=== PATIENT | female | born 1975 | race Caucasian/White ===

== ENCOUNTER 2020-03-15 14:10 | Emergency (ER) | payer BC ==
[2020-03-15] MEDS ORDERED: HYDROmorphone 1 MG/ML Syringe IVPUSH ONE ×2 (14:38→15:23)
[2020-03-15] MEDS ORDERED: Ondansetron 4 MG/2 ML SDV IVPUSH ONE ×3 (14:38→15:46)
[2020-03-15] MEDS ORDERED: Sodium Chloride 0.9% 1,000 ML IV ONE (14:39)
--- NOTE | 2020-03-15 14:49 | EDM.PDOC ---
ED HPI GENERAL MEDICAL PROBLEM - General Chief Complaint: Gastrointestinal Problem Stated Complaint: ABDOMIN/HERNIA Time Seen by Provider: 03/15/20 14:11 Source of Information: Reports: Patient History Limitations: Reports: No Limitations - History of Present Illness INITIAL COMMENTS - FREE TEXT/NARRATIVE: Presents reporting an umbilical hernia. Patient states that she has had a very longstanding umbilical hernia. It occasionally "pops out" but she is always able to reduce it herself with gentle pressure. This morning it popped out and she has not been able to get it back in. Now, she is having excruciating pain and mild nausea. No unusual activity. Denies vomiting, fever, constipation. 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 ED EXAM, GI/ABD - Physical Exam Exam: See Below Exam Limited By: No Limitations General Appearance: Alert, Mild Distress (To pain) Ears: Normal External Exam, Normal TMs Nose: Normal Inspection Throat/Mouth: Normal Inspection Head: Atraumatic, Normocephalic Neck: Normal Inspection Respiratory/Chest: No Respiratory Distress, Lungs Clear Cardiovascular: Normal Peripheral Pulses, Regular Rate, Rhythm, No Murmur GI/Abdominal Exam: Normal Bowel Sounds, Soft, No Distention, Other (6 to 7 cm umbilical hernia with exquisite tenderness) Back Exam: Normal Inspection Extremities: Normal Inspection Neurological: Alert, Oriented Psychiatric: Normal Affect, Normal Mood Skin Exam: Warm, Dry, Intact, Normal Color, No Rash Lymphatic: No Adenopathy Course - Vital Signs Last Recorded V/S: Last Vital Signs Temp 37.1 C 03/15/20 14:17 Pulse 81 03/15/20 14:17 Resp 18 03/15/20 14:17 BP 149/88 H 03/15/20 14:17 Pulse Ox 99 03/15/20 14:17 - Orders/Labs/Meds Orders: Active Orders 24 hr Category Date Time Status Abdomen Pelvis wo Cont [CT] Stat Exams 03/15/20 15:33 Ordered Labs: Laboratory Tests 03/15/20 03/15/20 03/15/20 Range/Units 14:52 14:52 16:06 WBC 12.42 H (4.0-11.0) K/uL RBC 4.67 (4.30-5.90) M/uL Hgb 14.0 (12.0-16.0) g/dL Hct 40.9 (36.0-46.0) % MCV 87.6 (80.0-98.0) fL MCH 30.0 (27.0-32.0) pg MCHC 34.2 (31.0-37.0) g/dL RDW Std Deviation 40.4 (28.0-62.0) fl RDW Coeff of Megan 13 (11.0-15.0) % Plt Count 301 (150-400) K/uL MPV 9.60 (7.40-12.00) fL Neut % (Auto) 83.8 H (48.0-80.0) % Lymph % (Auto) 11.7 L (16.0-40.0) % [place] % (Auto) 3.4 (0.0-15.0) % Eos % (Auto) 0.9 (0.0-7.0) % Baso % (Auto) 0.2 (0.0-1.5) % Neut # (Auto) 10.4 H (1.4-5.7) K/uL Lymph # (Auto) 1.5 (0.6-2.4) K/uL [place] # (Auto) 0.4 (0.0-0.8) K/uL Eos # (Auto) 0.1 (0.0-0.7) K/uL Baso # (Auto) 0.0 (0.0-0.1) K/uL Nucleated RBC % 0.0 /100WBC Nucleated RBCs # 0 K/uL Sodium 137 (136-145) mmol/L Potassium 3.9 (3.5-5.1) mmol/L Chloride 100 (98-107) mmol/L Carbon Dioxide 28.1 (21.0-32.0) mmol/L BUN 15 (7.0-18.0) mg/dL Creatinine 1.0 (0.6-1.0) mg/dL Est Cr Clr Drug Dosing 67.91 mL/min Estimated GFR (MDRD) > 60.0 ml/min Glucose 119 H (74-106) mg/dL Calcium 9.7 (8.5-10.1) mg/dL Total Bilirubin 0.6 (0.2-1.0) mg/dL AST 23 (15-37) IU/L ALT 38 (14-63) IU/L Alkaline Phosphatase 49 (46-116) U/L Total Protein 8.2 (6.4-8.2) g/dL Albumin 4.1 (3.4-5.0) g/dL Globulin 4.1 H (2.6-4.0) g/dL Albumin/Globulin Ratio 1.0 (0.9-1.6) Urine HCG, Qual NEGATIVE (NEGATIVE) Meds: Medications Discontinued Medications Generic Name Dose Route Start Last Admin Trade Name Freq PRN Reason Stop Dose Admin Hydromorphone HCl 1 mg 03/15/20 14:38 03/15/20 14:45 Dilaudid IVPUSH 03/15/20 14:39 1 mg ONETIME ONE Administration Hydromorphone HCl 1 mg 03/15/20 15:23 03/15/20 15:28 Dilaudid IVPUSH 03/15/20 15:24 1 mg ONETIME ONE Administration Sodium Chloride 1,000 mls @ 999 mls/hr 03/15/20 14:39 03/15/20 14:46 Normal Saline IV 03/15/20 15:39 999 mls/hr STAT ONE Administration Metoclopramide HCl 10 mg 03/15/20 16:04 03/15/20 16:07 Reglan IV 03/15/20 16:05 10 mg ONETIME ONE Administration Ondansetron HCl 4 mg 03/15/20 14:38 03/15/20 14:45 Zofran IVPUSH 03/15/20 14:39 4 mg ONETIME ONE Administration Ondansetron HCl 4 mg 03/15/20 15:45 03/15/20 15:49 Zofran IVPUSH 03/15/20 15:46 4 mg ONETIME ONE Administration Ondansetron HCl 4 mg 03/15/20 15:46 03/15/20 15:49 Zofran IVPUSH 03/15/20 15:47 Not Given ONETIME ONE - Re-Assessments/Exams Free Text/Narrative Re-Assessment/Exam: 03/15/[address] Gaston Contreras, Emergency Medicine and Florin Parker, General Surgery here. Both attempted to reduce the hernia. Free Text/Narrative Re-Assessment/Exam: 03/15/20 16:30 Dr. Florin Parker here, same reduced the hernia. Will get CT and if no bowel involvement send home with clinic follow up. Free Text/Narrative Re-Assessment/Exam: 03/15/20 18:02 Dr Florin Parker here to review CT scan. Home with clinic follow up. Departure - Departure Time of Disposition: 18:02 Disposition: Home, Self-Care 01 Condition: Good Clinical Impression: Umbilical hernia Qualifiers: Obstruction and gangrene presence: without obstruction or gangrene Qualified Code(s): K42.9 - Umbilical hernia without obstruction or gangrene - Discharge Information *PRESCRIPTION DRUG MONITORING PROGRAM REVIEWED*: Not Applicable *COPY OF PRESCRIPTION DRUG MONITORING REPORT IN PATIENT ÁNGEL: Not Applicable Referrals: PCP,None [Primary Care Provider] - Florin Parker MD [Physician] - Forms: ED Department Discharge Additional Instructions: The following information is given to patients seen in the emergency department who are being discharged to home. This information is to outline your options for follow-up care. We provide all patients seen in our emergency department with a follow-up referral. The need for follow-up, as well as the timing and circumstances, are variable depending upon the specifics of your emergency department visit. If you don't have a primary care physician on staff, we will provide you with a referral. We always advise you to contact your personal physician following an emergency department visit to inform them of the circumstance of the visit and for follow-up with them and/or the need for any referrals to a consulting specialist. The emergency department will also refer you to a specialist when appropriate. This referral assures that you have the opportunity for follow-up care with a specialist. All of these measure are taken in an effort to provide you with optimal care, which includes your follow-up. Under all circumstances we always encourage you to contact your private physician who remains a resource for coordinating your care. When calling for follow-up care, please make the office aware that this follow-up is from your recent emergency room visit. If for any reason you are refused follow-up, please contact the [facility] at and asked to speak to the emergency department charge nurse. 1. Return promptly to the emergency room for vomiting and not keeping down oral fluids, unable to reduce umbilical hernia, increased pain and hernia area. 2. Follow up in the clinic with Dr. Florin Parker for definitive management. Sepsis Event Note (ED) - Evaluation Sepsis Screening Result: No Definite Risk - Focused Exam Vital Signs: Vital Signs Temp Pulse Resp BP Pulse Ox 03/15/20 14:17 37.1 C 81 18 149/88 H 99 - My Orders Last 24 Hours: My Active Orders 03/15/20 15:33 Abdomen Pelvis wo Cont [CT] Stat - Assessment/Plan Last 24 Hours: My Active Orders 03/15/20 15:33 Abdomen Pelvis wo Cont [CT] Stat
[2020-03-15 15:40] LABS: BLOOD UREA NITROGEN,BUN 15 mg/dL (7.0-18.0); CARBON DIOXIDE,CO2 28.1 mmol/L (21.0-32.0); CHLORIDE,CL 100 mmol/L (98-107); GLUCOSE RANDOM 119 mg/dL (74-106); POTASSIUM,K 3.9 mmol/L (3.5-5.1); SODIUM,NA 137 mmol/L (136-145)
[2020-03-15] MEDS ORDERED: Metoclopramide 10 MG/2 ML SDV IV ONE (16:04)
--- NOTE | 2020-03-15 17:57 | CT ---
Indication: Umbilical hernia Technique: Volumetric multidetector CT images of the abdomen and pelvis were without the administration of intravenous contrast. Comparison: None available. Findings: There is dependent basilar atelectasis versus scar. The liver is mildly prominent with otherwise preserved attenuation. The gallbladder is unremarkable without evidence of radiopaque calculus. There is no significant common biliary ductal dilatation or abrupt cut off. The spleen is normal in attenuation and size. The stomach and duodenum are grossly unremarkable. The pancreas is normal in attenuation without significant atrophy. There is demonstration of a low-density mass with minimal peripheral calcification seen in the left adrenal gland measuring 18.3 Hounsfield units. There is no evidence of radiopaque calculus or hydronephrosis. There is moderate stool seen throughout the colon with colonic diverticulosis without evidence of diverticulitis. The appendix is unremarkable. There is no significant mesenteric, retroperitoneal, or pelvic sidewall lymph nodes. The aorta is nonaneurysmal. There is no significant atherosclerotic disease appreciated. The solid pelvic viscera are grossly unremarkable. There is an IUD seen in satisfactory position within the endometrial canal. There is no free fluid or free air. There is demonstration of a large fat containing umbilical hernia with a moderate amount of superficial fat stranding. There is no evidence of frankly herniated loop of small bowel with minimal mesenteric edema seen within adjacent loops of small bowel. The lumbar vertebral body heights are grossly maintained in satisfactory alignment without evidence of displaced fracture, lytic or blastic lesion. Impression: Demonstration large fat containing umbilical hernia with a wide mouth defect with minimal internal fat stranding likely representing incarceration. There is minimal associated thickening of adjacent bowel loops with mild mesenteric edema which remains intraperitoneal. No evidence of igor, herniated or obstructed small bowel is appreciated. Please note that all CT scans at this facility use dose modulation, iterative reconstruction, and/or weight-based dosing when appropriate to reduce radiation dose to as low as reasonably achievable. Dictated by Jaspal Washington MD @ Mar 15 2020 5:47PM Signed by Dr. Jaspal Washington @ Mar 15 2020 5:55PM
--- NOTE | 2020-03-15 20:22 | CONS ---
DATE OF CONSULTATION: 03/15/2020 DATE OF : 1975 PRIMARY CARE PHYSICIAN: None PCP REASON FOR CONSULT: Umbilical hernia. HISTORY OF PRESENT ILLNESS: The patient is a pleasant 44-year-old female. She states for the past 12 years she has had an umbilical hernia. It appears she has had ever since the of her child. She says she is always able to reduce it. However, she today started having some pain when she was at work. She went home and laid down to try to reduce it but was not able to and also was becoming very hard and painful, so she came to the hospital for evaluation. The patient says she is also having some nausea. PAST MEDICAL HISTORY: Hypertension. CURRENT HOME MEDICATIONS: 1. Labetalol daily. 2. Hydrochlorothiazide daily. PAST SURGICAL HISTORY: The patient denies any. ALLERGIES: No known drug allergies. SOCIAL HISTORY: Patient denies any tobacco use. Denies any illicit drug use. She does have occasional alcohol on weekends. 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 FAMILY HISTORY: Father had MIs. REVIEW OF SYSTEMS: A complete 12-point review of system was done, was negative except for what is in HPI. PHYSICAL EXAMINATION: GENERAL: The patient is lying in hospital bed. She is alert and oriented, in no acute distress. VITAL SIGNS: Temperature is 98.7, pulse is 73, blood pressure is 141/77, and saturating 95% on room air. HEENT: Normocephalic, atraumatic. Mouth, she is wearing her mask. LUNGS: Clear to auscultation bilaterally. No rhonchi or wheezing. HEART: Regular rhythm. No murmur appreciated. ABDOMEN: Soft and nondistended. Right umbilicus does have a hard mass. It is tender and probably about 6 cm. With some traction, I am able to reduce the umbilical hernia. EXTREMITIES: No edema. NEUROLOGIC: No gross motor neurologic deficit noted. LABORATORY DATA: White cell count is 12.42. Sodium is 137, potassium 3.9, chloride is 100, bicarb 28.1, BUN 15, creatinine 1, glucose is 119. CT scan was done and did look at the images myself and report did show a large sac containing umbilical hernia with some superficial fat stranding, no small bowel involvement. There is some minimal mesenteric edema of adjacent bowel loops though. ASSESSMENT/PLAN: A pleasant 44-year-old female with a longstanding umbilical hernia. It did become incarcerated. However, we were able to reduce it. Currently, the patient is not having any abdominal pain and feels good. I did go over with the patient that she should start consider having it repaired. She would like to do this since it has been reduced and is no longer painful and will do it as an outpatient. The patient should follow up with me in the clinic. I told the patient it is important that if she does have pain or if she has nausea, vomiting or does not feel well, she needs to return to the ER. There is always a small chance that before the hernia reduced, there is a bowel entrapment that could become ischemic, although no real signs of it currently. The patient understands. She will follow up with me as an outpatient in the clinic. I did discuss this with the ER physician. SANJEEV ROSALES /[id number]
== END 2020-03-15 18:49 | disposition home or self-care (01) ==
LOC: MW.ED 14:10
DX: K42.9 Umbilical hernia without obstruction or gangrene (principal); I10 Essential (primary) hypertension; Z79.899 Other long term (current) drug therapy
CPT/HCPCS: 36415; 74176; 80053; 81025; 85025; 96374; 96375; 96376; 99283; J1170; J2405; J2765; J7030; 99284

== ENCOUNTER 2020-04-21 10:00 | Day surgery (SDC) | payer BC ==
[~2020-04-21 10:00] MED LIST: Acetaminophen 1,000 MG in Premix Bag 1 BAG IV ONE; Lactated Ringers 1,000 ML IV SCH; Pregabalin 200 MG Cap PO SCH; ceFAZolin 2 GM in Premix Bag 1 BAG IV ONE
[2020-04-21] MEDS ORDERED: Octyl 2-Cyanoacrylate 1 Tube ONE (10:48)
[2020-04-21] MEDS ORDERED: Bupivacaine 0.5% 30 ML SDV ONE (10:48)
--- NOTE | 2020-04-21 10:52 | PCM.PREANE ---
Preanesthetic Assessment - Anesthesia/Transfusion/Family Hx Anesthesia History: No Prior Anesthesia Family History of Anesthesia Reaction: No Transfusion History: No Prior Transfusion(s) Intubation History: Unknown - Review of Systems General: No Symptoms Pulmonary: No Symptoms Cardiovascular: No Symptoms Gastrointestinal: No Symptoms Neurological: No Symptoms Other: Reports: None - Physical Assessment Vital Signs: Last Vital Signs Temp 36.9 C 04/21/20 10:17 Pulse 78 04/21/20 10:17 Resp 15 04/21/20 10:17 BP 125/77 04/21/20 10:17 Pulse Ox 96 04/21/20 10:17 Height: 5 ft 6 in Weight: 107.048 kg ASA Class: 2 Mental Status: Alert & Oriented x3 Airway Class: Mallampati = 2 Dentition: Reports: Normal Dentition Thyro-Mental Finger Breadths: 3 Mouth Opening Finger Breadths: 3 ROM/Head Extension: Full Lungs: Clear to Auscultation, Normal Respiratory Effort Cardiovascular: Regular Rate, Regular Rhythm - Lab Values: Laboratory Last Values Urine HCG, Qual NEGATIVE (NEGATIVE) 04/21/20 10:05 - Allergies Allergies/Adverse Reactions: Allergies Allergy/AdvReac Type Severity Reaction Status Date / Time No Known Allergies Allergy Verified 04/15/20 08:07 - Blood Blood Available: No - Anesthesia Plan Pre-Op Medication Ordered: None - Acknowledgements Anesthesia Type Planned: MAC (general anesthesia back-up plan) Pt an Appropriate Candidate for the Planned Anesthesia: Yes Alternatives and Risks of Anesthesia Discussed w Pt/Guardian: Yes Pt/Guardian Understands and Agrees with Anesthesia Plan: Yes PreAnesthesia Questionnaire HEENT History: Reports: Other (See Below) Other HEENT History: wears glasses Cardiovascular History: Reports: Hypertension Respiratory History: Reports: None Gastrointestinal History: Reports: Other (See Below) (ventral (umbilical) hernia, moderate in size) Genitourinary History: Reports: None 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: Musculoskeletal History: Reports: None Neurological History: Reports: None Psychiatric History: Reports: None Endocrine/Metabolic History: Reports: Obesity/BMI 30+ (BMI 38.1) Hematologic History: Reports: None Immunologic History: Reports: None Oncologic (Cancer) History: Reports: None Dermatologic History: Reports: None - Infectious Disease History Infectious Disease History: Reports: Chicken Pox - Past Surgical History Head Surgeries/Procedures: Reports: None HEENT Surgical History: Reports: None Cardiovascular Surgical History: Reports: None Respiratory Surgical History: Reports: None GI Surgical History: Reports: None Female Surgical History: Reports: None Endocrine Surgical History: Reports: None Neurological Surgical History: Reports: None Musculoskeletal Surgical History: Reports: None Oncologic Surgical History: Reports: None Dermatological Surgical History: Reports: None - SUBSTANCE USE Tobacco Use Status *Q: Never Tobacco User - HOME MEDS Home Medications: Home Meds Labetalol [Normodyne] 200 mg PO BID 03/15/20 [History] hydroCHLOROthiazide [Hydrochlorothiazide] 25 mg PO DAILY 03/15/20 [History] - CURRENT (IN HOUSE) MEDS Current Meds: Current Medications Lactated Ringer's (Ringers, Lactated) 1,000 mls @ 125 mls/hr IV ASDIRECTED [facility] Last Admin: 04/21/20 10:20 Dose: 125 mls/hr Documented by: Pregabalin (Lyrica) 200 mg PO DAILY [facility] Last Admin: 04/21/20 10:23 Dose: 200 mg Documented by: Discontinued Medications Acetaminophen 1,000 mg/ Premix 100 mls @ 400 mls/hr IV NOW ONE Stop: 04/21/20 07:44 Last Admin: 04/21/20 10:46 Dose: 400 mls/hr Documented by: Cefazolin Sodium/Dextrose 2 gm (/ Premix) 50 mls @ 100 mls/hr IV ONETIME ONE Stop: 04/19/20 11:48 Acetaminophen (Ofirmev) Confirm Administered Dose 100 mls @ as directed .ROUTE .STK-MED ONE Stop: 04/21/20 10:30 Last Admin: 04/21/20 10:41 Dose: Not Given Documented by:
[2020-04-21] MEDS ORDERED: Ondansetron 4 MG/2 ML SDV ONE (12:35)
[2020-04-21] MEDS ORDERED: fentaNYL 100 MCG/2 ML SDV ONE (12:35)
[2020-04-21] MEDS ORDERED: Glycopyrrolate 0.2 MG/ML SDV ONE (12:35)
[2020-04-21] MEDS ORDERED: Propofol 200 MG/20 ML SDV ONE ×3 (12:35→12:52)
[2020-04-21] MEDS ORDERED: Dexamethasone 4 MG/ML 5 ML MDV ONE (12:35)
[2020-04-21] MEDS ORDERED: Midazolam 1 MG/ML 2 ML SDV ONE (12:35)
[2020-04-21] MEDS ORDERED: Ketorolac 30 MG/ML SDV ONE (12:35)
[2020-04-21] MEDS ORDERED: Rocuronium Bromide 50 MG/5 ML Syringe ONE (12:35)
[2020-04-21] MEDS ORDERED: ceFAZolin 1 GM Vial ONE (12:36)
[2020-04-21] MEDS ORDERED: Morphine 10 MG/ML Syringe ONE (12:36)
[2020-04-21] MEDS ORDERED: Morphine 10 MG/ML Syringe IVPUSH ONE (13:27)
--- NOTE | 2020-04-21 13:49 | PCM.OPNOTE ---
- General Post-Op/Procedure Note Date of Surgery/Procedure: 04/21/20 Operative Procedure(s): Open repair of a ventral/umbilical hernia with mesh. Findings: Large hernia sac with smaller facial defect. dictation number [id number] Pre Op Diagnosis: Umbilical/ventral hernia Post-Op Diagnosis: Umbilical/ventral hernia Anesthesia Technique: General ET Tube Pathology: Hernia sac and contents. EBL in mLs: 25 Complications: None Condition: Good
--- NOTE | 2020-04-21 14:15 | PCM48HPAN ---
Post Anesthesia Note - EVALUATION WITHIN 48HRS OF ANESTHETIC Vital Signs in Normal Range: Yes Patient Participated in Evaluation: Yes Respiratory Function Stable: Yes Airway Patent: Yes Cardiovascular Function Stable: Yes Hydration Status Stable: Yes Pain Control Satisfactory: Yes Nausea and Vomiting Control Satisfactory: Yes Mental Status Recovered: Yes Vital Signs: Last Vital Signs Temp 36.6 C 04/21/20 13:43 Pulse 82 04/21/20 14:09 Resp 17 04/21/20 14:09 BP 135/78 04/21/20 14:09 Pulse Ox 95 04/21/20 14:09 - COMMENTS/OBSERVATIONS Free Text/Narrative:: Doing well. Taking fluids. A&O x3. Moving to Phase 2.
--- NOTE | 2020-04-21 14:52 | PCM48HPAN ---
Post Anesthesia Note - EVALUATION WITHIN 48HRS OF ANESTHETIC Vital Signs in Normal Range: Yes Patient Participated in Evaluation: Yes Respiratory Function Stable: Yes Airway Patent: Yes Cardiovascular Function Stable: Yes Hydration Status Stable: Yes Pain Control Satisfactory: Yes Nausea and Vomiting Control Satisfactory: Yes Mental Status Recovered: Yes Vital Signs: Last Vital Signs Temp 36.6 C 04/21/20 13:43 Pulse 74 04/21/20 14:13 Resp 12 04/21/20 14:13 BP 137/83 04/21/20 14:13 Pulse Ox 96 04/21/20 14:13 - COMMENTS/OBSERVATIONS Free Text/Narrative:: Doing well. Ready for discharge.
--- NOTE | 2020-04-21 15:32 | PCM.SN.2 ---
- Free Text/Narrative Note: Getting up to get dressed. Was feeling fine. Became lightheaded and nauseated. Placed supine for 15 minutes. Color returned, nausea gone. Dressed without issues. to car with @ 15:31. No problems noted.
--- NOTE | 2020-04-21 15:51 | OR ---
SURGEON: MARIETTA MARIA MD DATE OF PROCEDURE: 04/21/2020 PREOPERATIVE DIAGNOSIS: Umbilical ventral hernia. POSTOPERATIVE DIAGNOSIS: Umbilical ventral hernia. PROCEDURE PERFORMED: Open repair of ventral/umbilical hernia with mesh. ANESTHESIA: General. ESTIMATED BLOOD LOSS: 25 mL. SPECIMEN: Hernia sac with some hernia content which was omentum. COMPLICATIONS: None. REASON FOR PROCEDURE: The patient is a pleasant 44-year-old female who has had a hernia for past 12 years. Once she had to go to the ER to get it reduced. I did go over the risks, goals, alternatives of the procedures. Risks include, but not limited to bleeding, infection, mesh infection, recurrence, chronic pain, injury to underlying structures. Also, went over she has a fairly large hernia sac, she could develop seroma or hematoma. We also noted there is a chance we might need to remove her umbilicus also. The patient understands and wished to proceed. PROCEDURE IN DETAIL: The patient was brought back to the OR and prepped and draped in usual fashion. SCDs were placed. Preoperative antibiotics were given and anesthesia provided by the Anesthesia team. After time-out was performed, a curvilinear infraumbilical incision was made. This was made down to the fascia. The hernia sac was then carefully dissected out. She did have a fairly large hernia sac. The hernia sac was removed from her umbilicus stalk. The hernia sac was then entered, looked to primarily have what looked to be omental fat in it. It was fairly adhered to the hernia sac. This was gently taken down. The hernia sac was then transected just about the point from the fascia. The hernia contact was then inspected. Some places appeared to be some holes and adhesions formed because it was in the sac. To help eliminate potential internal hernias from the holes in the omentum, I did transect a little bit of omentum. There was good hemostasis. One slightly larger vessel was suture ligated as a precaution with silk suture. The omentum was inspected. There was good hemostasis and it was placed back into the abdominal cavity. The actual hernia defect was just over 2 cm in size. Now, a large Ventralex ST mesh was placed, it laid nice and flat underneath the fascia. Now, it was secured in place with 0 Prolene and placed U stitch circumferentially around the defect. This was 8 times. Now, the actual fascial defect was closed over the mesh with 0 Vicryl [id number] stitch. The fascia was injected with local along with subcutaneous tissue. The area was then irrigated. There was good hemostasis. Now, the umbilical stock was then attached back down to the fascia with PDS suture. The space created by the hernia sac was then closed with 2 layers of 3-0 Vicryl. The skin was closed with 4-0 Monocryl and Dermabond. At the end of the case, sponge and needle counts were correct. The patient was transferred to the recovery room in stable condition. SANJEEV ROSALES /[id number]
== END 2020-04-21 15:30 | disposition home or self-care (01) ==
LOC: MW.SDS 10:00
PROVIDERS: ATTEND Surgery
DX: K42.0 Umbilical hernia with obstruction, without gangrene (principal); I10 Essential (primary) hypertension; F17.210 Nicotine dependence, cigarettes, uncomplicated; E66.9 Obesity, unspecified; Z68.38 Body mass index [BMI] 38.0-38.9, adult; Z79.899 Other long term (current) drug therapy
CPT/HCPCS: 49587; 81025; A9270; J0131; J0690; J1100; J1885; J2250; J2405; J2704; J3010; J3490; J7120; 88302; J2270